=== PATIENT | male | born 1935 | race African-American/Black ===

== ENCOUNTER 2021-10-27 13:29 | Inpatient (IN) | payer OTHER, MEDICARE ==
[2021-10-27 14:03] VITALS: BMI 25.7
[2021-10-27] MEDS ORDERED: SODIUM CHLORIDE 2,585 ML IV ONE (14:14)
[2021-10-27] MEDS ORDERED: ACETAMINOPHEN 1000 MG/100 ML BAG IVPB ONE (15:28)
[2021-10-27] MEDS ORDERED: ACETAMINOPHEN INJECTION 100 ML IVPB ONE (15:29)
[2021-10-27] MEDS ORDERED: SODIUM CHLORIDE 0.9% 500 ML INFUS.BAG IV ONE (15:39)
[2021-10-27 15:41] LABS: VENOUS BASE EXCESS 2.1 mmol/L (-2-2); VENOUS O2 SATURATION 55.9 % (70-80); VENOUS PCO2 44.2 mmHg (38-52); VENOUS PH 7.407 (7.310-7.410)
[2021-10-27 15:51] LABS: BASO % 0.3 % (0-2.0); HEMATOCRIT 35.9 % (35.4-49); HEMOGLOBIN 11.7 GM/dL (11.7-16.9); LYMPH % 16.6 % (8-40); MCH 28.7 pg (25.7-33.7); MCHC 32.6 g/dl (32.0-35.9); MEAN CELL VOLUME 87.9 fl (80-96); MEAN PLT VOLUME 7.9 fl (7.5-11.1); MONO % 13.4 % (3.8-10.2); NEUT % 69.7 % (42.8-82.8); PLATELET COUNT 218 10^3/uL (134-434); RBC 4.08 M/mm3 (4.00-5.60); RDW 14.5 % (11.9-15.9); WHITE BLOOD COUNT 7.3 K/mm3 (4.0-10.0)
[2021-10-27 15:56] LABS: INR 1.15 (0.83-1.09); PROTHROMBIN TIME (PATIENT) 13.2 SEC (9.7-13.0)
[2021-10-27 15:59] LABS: ACTIVATED PTT 28.8 SECONDS (25.2-36.5)
[2021-10-27 16:16] LABS: ALBUMIN 3.3 g/dl (3.4-5.0); BLOOD UREA NITROGEN 14.9 mg/dL (7-18); CALCIUM 8.7 mg/dL (8.5-10.1); MAGNESIUM 2.2 mg/dL (1.8-2.4)
[2021-10-27 16:19] LABS: CREATININE 1.2 mg/dL (0.55-1.3)
[2021-10-27 16:21] LABS: BILIRUBIN,TOTAL 0.6 mg/dL (0.2-1); TOT PROT 7.4 g/dl (6.4-8.2)
[2021-10-27] MEDS ORDERED: LIDOCAINE HCL 2% JELLY 10 ML CARTRIDGE UR ONE (19:12)
[2021-10-27] MEDS ORDERED: LIDOCAINE HCL 2% JELLY 10 ML CARTRIDGE ONE (19:15)
[2021-10-27] MEDS ORDERED: CEFTRIAXONE 1 GM/50 ML BAG ONE (20:18)
[2021-10-27 20:49] LABS: EPI CELLS 5 /uL (0-25.1); HYALINE CASTS 10 /uL (0-3.1); URINE APPEARANCE CLOUDY; URINE BACTERIA 22 /uL (0-1359); URINE BILIRUBIN NEGATIVE (NEGATIVE); URINE COLOR ORANGE; URINE GLUCOSE (UA) NEGATIVE (NEGATIVE); URINE KETONE NEGATIVE (NEGATIVE); URINE LEUK ESTERASE 2+ (NEGATIVE); URINE NITRITE NEGATIVE (NEGATIVE); URINE PROTEIN 2+ (NEGATIVE); URINE UROBILINOGEN 0.2 mg/dL (0.2-1.0); URINE WBC 786 /uL (0-25.8)
[2021-10-27] MEDS ORDERED: ACETAMINOPHEN 325 MG TABLET (FP) PO ONE (22:30)
[2021-10-27] MEDS ORDERED: ACETAMINOPHEN 325 MG TABLET (FP) ONE (22:31)
[2021-10-27 23:56] LABS: URINE RBC 8300 /uL (0-23.9)
[2021-10-28] MEDS ORDERED: IBUPROFEN 800 MG/8 ML IJ IVPB ONE (03:19)
[2021-10-28] MEDS: MELATONIN 5 MG TABLETS PO PRN (03:48)
[2021-10-28] MEDS ORDERED: HALOPERIDOL LACTATE 5 MG/ML IM ONE (04:00)
[2021-10-28] MEDS ORDERED: traZODone HCL 50 MG TABLET (FP) PO ONE (04:06)
[2021-10-28] MEDS ORDERED: TAMSULOSIN HCL 0.4 MG CAP ONE (09:10)
[2021-10-28] MEDS: TAMSULOSIN HCL 0.4 MG CAP PO SCH (09:13)
[2021-10-28 09:38] LABS: BASO % 0.6 % (0-2.0); EOS % 4.8 % (0-4.5); HEMATOCRIT 31.9 % (35.4-49); HEMOGLOBIN 10.6 GM/dL (11.7-16.9); LYMPH % 20.2 % (8-40); MCH 28.9 pg (25.7-33.7); MCHC 33.3 g/dl (32.0-35.9); MEAN CELL VOLUME 86.8 fl (80-96); MEAN PLT VOLUME 8.4 fl (7.5-11.1); MONO % 12.4 % (3.8-10.2); PLATELET COUNT 180 10^3/uL (134-434); RBC 3.67 M/mm3 (4.00-5.60); RDW 14.2 % (11.9-15.9); WHITE BLOOD COUNT 5.3 K/mm3 (4.0-10.0)
[2021-10-28 10:06] LABS: ALBUMIN 2.8 g/dl (3.4-5.0)
[2021-10-28 10:07] LABS: BLOOD UREA NITROGEN 16.1 mg/dL (7-18); CALCIUM 8.3 mg/dL (8.5-10.1); MAGNESIUM 2.4 mg/dL (1.8-2.4)
[2021-10-28 10:09] LABS: CREATININE 0.8 mg/dL (0.55-1.3); PHOSPHOROUS 2.8 mg/dL (2.5-4.9)
[2021-10-28 10:11] LABS: BILIRUBIN,TOTAL 0.5 mg/dL (0.2-1); TOT PROT 6.5 g/dl (6.4-8.2)
[2021-10-28] MEDS ORDERED: cefTRIAXone SODIUM 1 GM VIAL ONE (12:02)
[2021-10-28] MEDS ORDERED: DEXTROSE 5%-WATER - 50 ML IVPB ONE (12:02)
[2021-10-28] MEDS: ENOXAPARIN NA (PORCINE) 40 MG/0.4 ML DISP.SYRIN SQ SCH (12:37)
[2021-10-28] MEDS: metoPROLOL SUCCINATE 25 MG TAB.SR.24H (FP) PO SCH (12:38)
[2021-10-28] MEDS: SOLIFENACIN SUCCINATE 5 MG TAB PO SCH (12:38)
[2021-10-28] MEDS: FAMOTIDINE 20 MG TABLET PO SCH (12:38)
[2021-10-28] MEDS: oxyCODONE HCL 5 MG TABLET PO SCH ×2 (12:38→21:51)
[2021-10-28] MEDS: FINASTERIDE 5 MG TABLET (FP) PO SCH (12:39)
[2021-10-28] MEDS: GABAPENTIN 300 MG CAPSULE PO SCH ×2 (12:40→21:53)
[2021-10-28] MEDS: ACETAMINOPHEN 325 MG TABLET (FP) PO SCH ×2 (12:40→21:53)
[2021-10-28] MEDS: CEFTRIAXONE 1 GM in DEXTROSE 5%-WATER - 50 ML IVPB SCH (12:41)
[2021-10-28] MEDS: ENALAPRIL MALEATE 5 MG TABLET PO SCH (13:15)
[2021-10-28] MEDS: ATORVASTATIN CA 20 MG TABLET (FP) PO SCH (21:54)
[2021-10-29] MEDS ORDERED: cefTRIAXone SODIUM 1 GM VIAL ONE (09:03)
[2021-10-29] MEDS: CEFTRIAXONE 1 GM in DEXTROSE 5%-WATER - 50 ML IVPB SCH (09:23)
[2021-10-29] MEDS: ENOXAPARIN NA (PORCINE) 40 MG/0.4 ML DISP.SYRIN SQ SCH (09:24)
[2021-10-29] MEDS: metoPROLOL SUCCINATE 25 MG TAB.SR.24H (FP) PO SCH (09:24)
[2021-10-29] MEDS: FINASTERIDE 5 MG TABLET (FP) PO SCH (09:24)
[2021-10-29] MEDS: FAMOTIDINE 20 MG TABLET PO SCH (09:24)
[2021-10-29] MEDS: TAMSULOSIN HCL 0.4 MG CAP PO SCH (09:24)
[2021-10-29] MEDS: GABAPENTIN 300 MG CAPSULE PO SCH ×2 (09:24→21:31)
[2021-10-29] MEDS: SOLIFENACIN SUCCINATE 5 MG TAB PO SCH (09:24)
[2021-10-29] MEDS: ACETAMINOPHEN 325 MG TABLET (FP) PO SCH ×2 (09:25→21:30)
[2021-10-29] MEDS: oxyCODONE HCL 5 MG TABLET PO SCH ×2 (09:26→21:29)
[2021-10-29 12:41] LABS: BASO % 0.6 % (0-2.0); EOS % 4.5 % (0-4.5); HEMATOCRIT 30.7 % (35.4-49); HEMOGLOBIN 10.1 GM/dL (11.7-16.9); LYMPH % 24.7 % (8-40); MCH 28.7 pg (25.7-33.7); MCHC 32.8 g/dl (32.0-35.9); MEAN CELL VOLUME 87.4 fl (80-96); MEAN PLT VOLUME 8.5 fl (7.5-11.1); MONO % 9.7 % (3.8-10.2); NEUT % 60.5 % (42.8-82.8); PLATELET COUNT 223 10^3/uL (134-434); RBC 3.52 M/mm3 (4.00-5.60); RDW 14.4 % (11.9-15.9); WHITE BLOOD COUNT 5.4 K/mm3 (4.0-10.0)
[2021-10-29 13:06] LABS: ALBUMIN 2.7 g/dl (3.4-5.0); BLOOD UREA NITROGEN 15.7 mg/dL (7-18); CALCIUM 8.7 mg/dL (8.5-10.1)
[2021-10-29 13:07] LABS: MAGNESIUM 2.3 mg/dL (1.8-2.4)
[2021-10-29 13:09] LABS: CREATININE 0.9 mg/dL (0.55-1.3)
[2021-10-29 13:11] LABS: BILIRUBIN,TOTAL 0.2 mg/dL (0.2-1); TOT PROT 6.4 g/dl (6.4-8.2)
[2021-10-29] MEDS: ENALAPRIL MALEATE 5 MG TABLET PO SCH (15:40)
[2021-10-29] MEDS: MELATONIN 5 MG TABLETS PO PRN (21:29)
[2021-10-29] MEDS: ATORVASTATIN CA 20 MG TABLET (FP) PO SCH (21:30)
[2021-10-30 08:37] LABS: BASO % 0.6 % (0-2.0); EOS % 6.2 % (0-4.5); HEMOGLOBIN 10.1 GM/dL (11.7-16.9); LYMPH % 29.9 % (8-40); MCH 29.2 pg (25.7-33.7); MCHC 33.8 g/dl (32.0-35.9); MEAN CELL VOLUME 86.6 fl (80-96); MONO % 10.8 % (3.8-10.2); NEUT % 52.5 % (42.8-82.8); PLATELET COUNT 238 10^3/uL (134-434); RBC 3.47 M/mm3 (4.00-5.60); WHITE BLOOD COUNT 4.7 K/mm3 (4.0-10.0)
[2021-10-30 09:15] LABS: ALBUMIN 2.6 g/dl (3.4-5.0); CALCIUM 8.6 mg/dL (8.5-10.1); CREATININE 0.9 mg/dL (0.55-1.3); MAGNESIUM 2.1 mg/dL (1.8-2.4)
[2021-10-30 09:16] LABS: BLOOD UREA NITROGEN 13.5 mg/dL (7-18)
[2021-10-30 09:20] LABS: BILIRUBIN,TOTAL 0.5 mg/dL (0.2-1)
[2021-10-30 09:21] LABS: TOT PROT 6.2 g/dl (6.4-8.2)
[2021-10-30] MEDS: oxyCODONE HCL 5 MG TABLET PO SCH ×2 (09:23→21:57)
[2021-10-30] MEDS: GABAPENTIN 300 MG CAPSULE PO SCH ×2 (09:23→21:56)
[2021-10-30] MEDS: SOLIFENACIN SUCCINATE 5 MG TAB PO SCH (09:23)
[2021-10-30] MEDS: TAMSULOSIN HCL 0.4 MG CAP PO SCH (09:23)
[2021-10-30] MEDS: metoPROLOL SUCCINATE 25 MG TAB.SR.24H (FP) PO SCH (09:23)
[2021-10-30] MEDS: FINASTERIDE 5 MG TABLET (FP) PO SCH (09:23)
[2021-10-30] MEDS: FAMOTIDINE 20 MG TABLET PO SCH (09:24)
[2021-10-30] MEDS: ENOXAPARIN NA (PORCINE) 40 MG/0.4 ML DISP.SYRIN SQ SCH (09:25)
[2021-10-30] MEDS: ACETAMINOPHEN 325 MG TABLET (FP) PO SCH ×2 (09:26→21:58)
[2021-10-30] MEDS: ENALAPRIL MALEATE 5 MG TABLET PO SCH (09:33)
[2021-10-30] MEDS: CEFTRIAXONE 1 GM in DEXTROSE 5%-WATER - 50 ML IVPB SCH (13:52)
[2021-10-30] MEDS ORDERED: guaiFENesin 200 MG/10 ML 10 ML UNIT-DOSE CUPS PO PRN (15:39)
[2021-10-30] MEDS: CEFUROXIME AXETIL 500 MG TABLET PO SCH ×2 (16:56→21:57)
[2021-10-30] MEDS: POLYETHYLENE GLYCOL (HEALTHYLAX) 3350 17 GM PACKET PO SCH (16:57)
[2021-10-30] MEDS: DOCUSATE SODIUM 100 MG CAPSULE (FP) PO SCH ×2 (16:58→21:57)
[2021-10-30] MEDS: ATORVASTATIN CA 20 MG TABLET (FP) PO SCH (21:57)
[2021-10-31] MEDS: DOCUSATE SODIUM 100 MG CAPSULE (FP) PO SCH ×3 (05:24→21:42)
[2021-10-31] MEDS: TAMSULOSIN HCL 0.4 MG CAP PO SCH (08:54)
[2021-10-31] MEDS: ENOXAPARIN NA (PORCINE) 40 MG/0.4 ML DISP.SYRIN SQ SCH (10:36)
[2021-10-31] MEDS: POLYETHYLENE GLYCOL (HEALTHYLAX) 3350 17 GM PACKET PO SCH (10:36)
[2021-10-31] MEDS: CEFUROXIME AXETIL 500 MG TABLET PO SCH ×2 (10:36→21:45)
[2021-10-31] MEDS: ACETAMINOPHEN 325 MG TABLET (FP) PO SCH ×2 (10:36→21:42)
[2021-10-31] MEDS: oxyCODONE HCL 5 MG TABLET PO SCH ×2 (10:37→21:43)
[2021-10-31] MEDS: FAMOTIDINE 20 MG TABLET PO SCH (10:37)
[2021-10-31] MEDS: GABAPENTIN 300 MG CAPSULE PO SCH ×2 (10:37→21:41)
[2021-10-31] MEDS: FINASTERIDE 5 MG TABLET (FP) PO SCH (10:38)
[2021-10-31] MEDS: ENALAPRIL MALEATE 5 MG TABLET PO SCH (10:38)
[2021-10-31] MEDS: SOLIFENACIN SUCCINATE 5 MG TAB PO SCH (10:38)
[2021-10-31] MEDS: metoPROLOL SUCCINATE 25 MG TAB.SR.24H (FP) PO SCH (10:39)
[2021-10-31 11:02] LABS: BASO % 0.8 % (0-2.0); EOS % 5.3 % (0-4.5); HEMATOCRIT 30.8 % (35.4-49); HEMOGLOBIN 10.3 GM/dL (11.7-16.9); LYMPH % 29.9 % (8-40); MCH 28.7 pg (25.7-33.7); MCHC 33.3 g/dl (32.0-35.9); MEAN CELL VOLUME 86.1 fl (80-96); MEAN PLT VOLUME 8.4 fl (7.5-11.1); MONO % 9.1 % (3.8-10.2); NEUT % 54.9 % (42.8-82.8); PLATELET COUNT 254 10^3/uL (134-434); RBC 3.58 M/mm3 (4.00-5.60); RDW 14.2 % (11.9-15.9); WHITE BLOOD COUNT 5.2 K/mm3 (4.0-10.0)
[2021-10-31 12:00] LABS: ALBUMIN 2.9 g/dl (3.4-5.0); CALCIUM 8.6 mg/dL (8.5-10.1); MAGNESIUM 2.2 mg/dL (1.8-2.4)
[2021-10-31 12:03] LABS: CREATININE 0.9 mg/dL (0.55-1.3)
[2021-10-31 12:04] LABS: BILIRUBIN,TOTAL 0.4 mg/dL (0.2-1); TOT PROT 6.6 g/dl (6.4-8.2)
[2021-10-31] MEDS: ATORVASTATIN CA 20 MG TABLET (FP) PO SCH (21:45)
[2021-10-31 23:38] VITALS: BP 128/68; PULSE 75; TEMP 99
== END 2021-10-31 22:15 | DRG 689 ==
LOC: JER 13:29 → JERBED 22:05 → J8W 10-28 10:36
PROVIDERS: ADMIT Hospitalist; ATTEND Nurse Practitioner Family
DX: N39.0 Urinary tract infection, site not specified (principal); G93.41 Metabolic encephalopathy; I69.354 Hemiplegia and hemiparesis following cerebral infarction affecting left non-dominant side; I10 Essential (primary) hypertension; F03.90 Unspecified dementia, unspecified severity, without behavioral disturbance, psychotic disturbance, mood disturbance, and anxiety; R41.82 Altered mental status, unspecified; E78.00 Pure hypercholesterolemia, unspecified; N40.0 Benign prostatic hyperplasia without lower urinary tract symptoms; W18.39XA Other fall on same level, initial encounter; Y93.89 Activity, other specified; Y92.89 Other specified places as the place of occurrence of the external cause
CPT/HCPCS: 36415; 70450-TC; 71045-TC-FY; 72125-TC; 80053; 81003; 82550; 82553; 82803; 83605; 83735; 84100; 84484; 85025; 85610; 85730; 86850; 86900; 86901; 87040; 87086; 93005; 93010; 97116-GP; 97162-GP; 99285-25; C9803-CS; U0003; U0005

== ENCOUNTER 2021-12-30 13:14 | Emergency (ER) | payer OTHER, MEDICARE ==
[2021-12-30 13:24] VITALS: BMI 25.7
[2021-12-30 14:11] VITALS: TEMP 97.6
[2021-12-30 18:35] VITALS: BP 129/74; PULSE 81; RESP 14
== END 2021-12-31 02:17 | disposition home or self-care (01) ==
LOC: JER 13:14
DX: R51.9 Headache, unspecified (principal); C70.9 Malignant neoplasm of meninges, unspecified; W19.XXXA Unspecified fall, initial encounter
CPT/HCPCS: 70450-TC; 71045-TC-FY; 72125-TC; 99284-25

== ENCOUNTER 2023-04-19 13:51 | Inpatient (IN) | payer OTHER ==
[2023-04-19] MEDS ORDERED: SODIUM CHLORIDE 1,000 ML IV STA (15:48)
[2023-04-19] MEDS ORDERED: ONDANSETRON 4 MG/2 ML VIAL IVPUSH ONE (15:48)
[2023-04-19] MEDS ORDERED: ACETAMINOPHEN 1000 MG/100 ML BAG IVPB ONE (15:49)
[2023-04-19] MEDS ORDERED: ONDANSETRON 4 MG/2 ML VIAL ONE (16:06)
[2023-04-19] MEDS ORDERED: CEFTRIAXONE 1,000 MG in DEXTROSE 5%-WATER - 50 ML IVPB STA (18:19)
[2023-04-19] MEDS ORDERED: AZITHROMYCIN IVPB 500 MG in DEXTROSE 5%-WATER - 250 ML IVPB ONE (18:20)
[2023-04-19 18:53] LABS: BASO % 0.6 % (0-2.0); EOS % 0.1 % (0-4.5); HEMATOCRIT 42.9 % (35.4-49); HEMOGLOBIN 13.7 GM/dL (11.7-16.9); LYMPH % 24.8 % (8-40); MCHC 32.1 g/dl (32.0-35.9); MEAN CELL VOLUME 90.4 fl (80-96); MEAN PLT VOLUME 7.7 fl (7.5-11.1); NEUT % 60.5 % (42.8-82.8); PLATELET COUNT 199 10^3/uL (134-434); RBC 4.74 M/mm3 (4.00-5.60); RDW 14.9 % (11.9-15.9); WHITE BLOOD COUNT 6.2 K/mm3 (4.0-10.0)
[2023-04-19 19:00] LABS: INR 1.13 (0.83-1.09)
[2023-04-19 19:07] LABS: PROTHROMBIN TIME (PATIENT) 13.1 SEC (9.7-13.0)
[2023-04-19 19:08] LABS: ACTIVATED PTT 27.4 SECONDS (25.2-36.5)
[2023-04-19 19:22] LABS: CHLORIDE 102 mmol/L (98-107); SODIUM 130 mmol/L (136-145)
[2023-04-19 19:25] LABS: ALBUMIN 3.2 g/dl (3.4-5.0); BLOOD UREA NITROGEN 15.1 mg/dL (7-18); CALCIUM 8.8 mg/dL (8.5-10.1); CO2 23 mmol/L (21-32); GLUCOSE,RANDOM 100 mg/dL (74-106); LIPASE < 10 U/L (73-393)
[2023-04-19 19:28] LABS: CREATININE 1.4 mg/dL (0.55-1.3)
[2023-04-19 19:30] LABS: BILIRUBIN,TOTAL 0.5 mg/dL (0.2-1); TOT PROT 8.6 g/dl (6.4-8.2)
[2023-04-19 19:31] LABS: ALK PHOS 51 U/L (45-117)
[2023-04-19 19:35] LABS: ANION GAP 4 mmol/L (4-13); POTASSIUM > 10.0 mmol/L (3.5-5.1); SGOT/AST 125 U/L (15-37); SGPT/ALT 34 U/L (13-61)
[2023-04-19] MEDS ORDERED: ACETAMINOPHEN INJECTION 100 ML IVPB ONE (21:51)
[2023-04-19] MEDS ORDERED: CEFTRIAXONE 1 GM/50 ML BAG ONE (21:52)
[2023-04-19] MEDS ORDERED: AZITHROMYCIN IVPB 500 MG/250 ML BAG IVPB ONE (21:52)
[2023-04-19 22:17] LABS: POTASSIUM 4.3 mmol/L (3.5-5.1)
[2023-04-19 22:18] LABS: CALCIUM 8.9 mg/dL (8.5-10.1)
[2023-04-19 22:19] LABS: BLOOD UREA NITROGEN 15.3 mg/dL (7-18)
[2023-04-19 22:22] LABS: CREATININE 1.4 mg/dL (0.55-1.3)
[2023-04-19] MEDS ORDERED: DOCUSATE SODIUM 100 MG CAPSULE (FP) PO PRN (23:42)
[2023-04-20] MEDS: SODIUM CHLORIDE 1,000 ML IV SCH ×2 (01:00→21:10)
[2023-04-20] MEDS ORDERED: ACETAMINOPHEN 1000 MG/100 ML BAG IVPB PRN (02:00)
[2023-04-20] MEDS ORDERED: ONDANSETRON 4 MG/2 ML VIAL IVPUSH PRN (02:00)
[2023-04-20] MEDS ORDERED: REMDESIVIR 200 MG in SODIUM CHLORIDE 250 ML IVPB ONE ×2 (10:30→20:00)
[2023-04-20] MEDS ORDERED: REMDESIVIR 100 MG in SODIUM CHLORIDE 250 ML IVPB SCH (20:00)
[2023-04-20] MEDS: ATORVASTATIN CA 20 MG TABLET (FP) PO SCH (22:23)
[2023-04-21 01:05] VITALS: BMI 29.4
[2023-04-21] MEDS: SODIUM CHLORIDE 1,000 ML IV SCH (01:45)
[2023-04-21] MEDS: PARoxetine HCL 10 MG TABLET PO SCH (09:25)
[2023-04-21] MEDS: metoPROLOL SUCCINATE 25 MG TAB.SR.24H (FP) PO SCH (09:25)
[2023-04-21] MEDS: ACETAMINOPHEN 325 MG TABLET (FP) PO PRN (09:25)
[2023-04-21] MEDS ORDERED: REMDESIVIR 100 MG in SODIUM CHLORIDE 250 ML IVPB SCH (10:00)
[2023-04-21] MEDS ORDERED: traMADol HCL 50 MG TABLET PO PRN (12:26)
[2023-04-21] MEDS: DOCUSATE SODIUM 100 MG CAPSULE (FP) PO SCH ×2 (13:49→22:09)
[2023-04-21] MEDS: REMDESIVIR 100 MG in SODIUM CHLORIDE 250 ML IVPB SCH (20:42)
[2023-04-21] MEDS: ATORVASTATIN CA 20 MG TABLET (FP) PO SCH (22:09)
[2023-04-21] MEDS: GABAPENTIN 300 MG CAPSULE PO SCH (22:10)
[2023-04-22] MEDS: ACETAMINOPHEN 325 MG TABLET (FP) PO PRN (02:25)
[2023-04-22] MEDS: MELATONIN 5 MG TABLETS PO PRN (02:26)
[2023-04-22] MEDS: DOCUSATE SODIUM 100 MG CAPSULE (FP) PO SCH ×3 (06:52→22:03)
[2023-04-22] MEDS: ENALAPRIL MALEATE 5 MG TABLET PO SCH (10:59)
[2023-04-22] MEDS: PARoxetine HCL 10 MG TABLET PO SCH (10:59)
[2023-04-22] MEDS: GABAPENTIN 300 MG CAPSULE PO SCH ×2 (10:59→22:04)
[2023-04-22] MEDS: metoPROLOL SUCCINATE 25 MG TAB.SR.24H (FP) PO SCH (10:59)
[2023-04-22] MEDS: TAMSULOSIN HCL 0.4 MG CAP PO SCH (10:59)
[2023-04-22] MEDS: FINASTERIDE 5 MG TABLET (FP) PO SCH (11:34)
[2023-04-22] MEDS: POLYETHYLENE GLYCOL (HEALTHYLAX) 3350 17 GM PACKET PO SCH (11:34)
[2023-04-22] MEDS: FAMOTIDINE 20 MG TABLET PO SCH (11:34)
[2023-04-22] MEDS: SOLIFENACIN SUCCINATE 5 MG TAB PO SCH (11:34)
[2023-04-22] MEDS: ATORVASTATIN CA 20 MG TABLET (FP) PO SCH (22:03)
[2023-04-22] MEDS: REMDESIVIR 100 MG in SODIUM CHLORIDE 250 ML IVPB SCH (22:12)
[2023-04-23] MEDS: DOCUSATE SODIUM 100 MG CAPSULE (FP) PO SCH ×3 (05:31→21:46)
[2023-04-23] MEDS: metoPROLOL SUCCINATE 25 MG TAB.SR.24H (FP) PO SCH ×2 (09:51→12:24)
[2023-04-23] MEDS: POLYETHYLENE GLYCOL (HEALTHYLAX) 3350 17 GM PACKET PO SCH (09:51)
[2023-04-23] MEDS: ENALAPRIL MALEATE 5 MG TABLET PO SCH ×2 (09:51→12:24)
[2023-04-23] MEDS: FINASTERIDE 5 MG TABLET (FP) PO SCH ×2 (09:51→12:24)
[2023-04-23] MEDS: TAMSULOSIN HCL 0.4 MG CAP PO SCH ×2 (09:51→12:23)
[2023-04-23] MEDS: FAMOTIDINE 20 MG TABLET PO SCH ×2 (09:51→12:24)
[2023-04-23] MEDS: PARoxetine HCL 10 MG TABLET PO SCH ×2 (09:51→12:24)
[2023-04-23] MEDS: GABAPENTIN 300 MG CAPSULE PO SCH ×3 (09:51→21:46)
[2023-04-23] MEDS: SOLIFENACIN SUCCINATE 5 MG TAB PO SCH ×2 (09:51→12:23)
[2023-04-23] MEDS: ACETAMINOPHEN 325 MG TABLET (FP) PO PRN (10:10)
[2023-04-23 12:01] LABS: ARTERIAL BLD GAS O2 SATURATION 98.2 % (95-98); ARTERIAL BLOOD GAS BASE EXCESS -1.6 mmol/L (-2-2); ARTERIAL BLOOD GAS PO2 110.8 mmHg (80-100); ARTERIAL BLOOD GAS pH 7.441 (7.350-7.450)
[2023-04-23 12:07] LABS: ALLENS TEST POSITIVE
[2023-04-23] MEDS: ACETAMINOPHEN 1000 MG/100 ML BAG IVPB PRN ×2 (12:30→21:46)
[2023-04-23 12:57] LABS: BASO % 0.3 % (0-2.0); EOS % 0.1 % (0-4.5); HEMATOCRIT 39.5 % (35.4-49); HEMOGLOBIN 12.9 GM/dL (11.7-16.9); LYMPH % 19.4 % (8-40); MCH 28.8 pg (25.7-33.7); MCHC 32.7 g/dl (32.0-35.9); MEAN CELL VOLUME 88.2 fl (80-96); MEAN PLT VOLUME 8.2 fl (7.5-11.1); MONO % 10.1 % (3.8-10.2); NEUT % 70.1 % (42.8-82.8); PLATELET COUNT 182 10^3/uL (134-434); RBC 4.48 M/mm3 (4.00-5.60); RDW 14.8 % (11.9-15.9); WHITE BLOOD COUNT 7.9 K/mm3 (4.0-10.0)
[2023-04-23 13:14] LABS: POTASSIUM 3.9 mmol/L (3.5-5.1)
[2023-04-23 13:16] LABS: CALCIUM 8.5 mg/dL (8.5-10.1)
[2023-04-23 13:17] LABS: BLOOD UREA NITROGEN 15.8 mg/dL (7-18)
[2023-04-23 13:20] LABS: CREATININE 1.1 mg/dL (0.55-1.3)
[2023-04-23 13:21] LABS: BILIRUBIN,TOTAL 0.9 mg/dL (0.2-1); TOT PROT 6.9 g/dl (6.4-8.2)
[2023-04-23] MEDS: REMDESIVIR 100 MG in SODIUM CHLORIDE 250 ML IVPB SCH (21:18)
[2023-04-23] MEDS: ATORVASTATIN CA 20 MG TABLET (FP) PO SCH (21:46)
[2023-04-24] MEDS: DOCUSATE SODIUM 100 MG CAPSULE (FP) PO SCH ×3 (05:49→22:41)
[2023-04-24] MEDS: POLYETHYLENE GLYCOL (HEALTHYLAX) 3350 17 GM PACKET PO SCH (10:54)
[2023-04-24] MEDS: TAMSULOSIN HCL 0.4 MG CAP PO SCH (10:54)
[2023-04-24] MEDS: GABAPENTIN 300 MG CAPSULE PO SCH ×2 (10:54→22:41)
[2023-04-24] MEDS: metoPROLOL SUCCINATE 25 MG TAB.SR.24H (FP) PO SCH (10:55)
[2023-04-24] MEDS: SOLIFENACIN SUCCINATE 5 MG TAB PO SCH (10:55)
[2023-04-24] MEDS: FINASTERIDE 5 MG TABLET (FP) PO SCH (10:55)
[2023-04-24] MEDS: FAMOTIDINE 20 MG TABLET PO SCH (10:55)
[2023-04-24] MEDS: PARoxetine HCL 10 MG TABLET PO SCH (10:55)
[2023-04-24] MEDS: ENALAPRIL MALEATE 5 MG TABLET PO SCH (10:57)
[2023-04-24] MEDS ORDERED: ACETAMINOPHEN 1000 MG/100 ML BAG IVPB ONE (18:28)
[2023-04-24] MEDS: ATORVASTATIN CA 20 MG TABLET (FP) PO SCH (22:41)
[2023-04-24] MEDS: REMDESIVIR 100 MG in SODIUM CHLORIDE 250 ML IVPB SCH (23:04)
[2023-04-25] MEDS: DOCUSATE SODIUM 100 MG CAPSULE (FP) PO SCH ×3 (06:06→22:05)
[2023-04-25] MEDS: TAMSULOSIN HCL 0.4 MG CAP PO SCH (11:00)
[2023-04-25] MEDS: POLYETHYLENE GLYCOL (HEALTHYLAX) 3350 17 GM PACKET PO SCH ×3 (11:00→22:05)
[2023-04-25] MEDS: FAMOTIDINE 20 MG TABLET PO SCH (11:00)
[2023-04-25] MEDS: PARoxetine HCL 10 MG TABLET PO SCH (11:00)
[2023-04-25] MEDS: metoPROLOL SUCCINATE 25 MG TAB.SR.24H (FP) PO SCH (11:00)
[2023-04-25] MEDS: GABAPENTIN 300 MG CAPSULE PO SCH ×2 (11:00→22:04)
[2023-04-25] MEDS: FINASTERIDE 5 MG TABLET (FP) PO SCH (11:00)
[2023-04-25] MEDS: ENALAPRIL MALEATE 5 MG TABLET PO SCH (11:15)
[2023-04-25] MEDS: SOLIFENACIN SUCCINATE 5 MG TAB PO SCH (11:15)
[2023-04-25] MEDS ORDERED: BISACODYL 10 MG SUPP.RECT PR ONE (18:19)
[2023-04-25] MEDS: ATORVASTATIN CA 20 MG TABLET (FP) PO SCH (22:05)
[2023-04-26] MEDS: DOCUSATE SODIUM 100 MG CAPSULE (FP) PO SCH ×3 (06:36→22:33)
[2023-04-26] MEDS: POLYETHYLENE GLYCOL (HEALTHYLAX) 3350 17 GM PACKET PO SCH ×2 (09:54→22:33)
[2023-04-26] MEDS: GABAPENTIN 300 MG CAPSULE PO SCH ×2 (09:54→22:33)
[2023-04-26] MEDS: TAMSULOSIN HCL 0.4 MG CAP PO SCH (09:54)
[2023-04-26] MEDS: FINASTERIDE 5 MG TABLET (FP) PO SCH (09:55)
[2023-04-26] MEDS: FAMOTIDINE 20 MG TABLET PO SCH (09:55)
[2023-04-26] MEDS: ACETAMINOPHEN 325 MG TABLET (FP) PO PRN ×2 (09:55→23:04)
[2023-04-26] MEDS: PARoxetine HCL 10 MG TABLET PO SCH (09:55)
[2023-04-26] MEDS: metoPROLOL SUCCINATE 25 MG TAB.SR.24H (FP) PO SCH (09:55)
[2023-04-26] MEDS: ENALAPRIL MALEATE 5 MG TABLET PO SCH (09:55)
[2023-04-26] MEDS: SOLIFENACIN SUCCINATE 5 MG TAB PO SCH (09:55)
[2023-04-26] MEDS: ATORVASTATIN CA 20 MG TABLET (FP) PO SCH (22:33)
[2023-04-27] MEDS: DOCUSATE SODIUM 100 MG CAPSULE (FP) PO SCH ×3 (06:56→22:40)
[2023-04-27] MEDS: ACETAMINOPHEN 325 MG TABLET (FP) PO PRN ×3 (06:56→22:40)
[2023-04-27] MEDS: TAMSULOSIN HCL 0.4 MG CAP PO SCH (09:16)
[2023-04-27] MEDS: GABAPENTIN 300 MG CAPSULE PO SCH ×2 (12:22→22:40)
[2023-04-27] MEDS: PARoxetine HCL 10 MG TABLET PO SCH (12:22)
[2023-04-27] MEDS: FAMOTIDINE 20 MG TABLET PO SCH (12:22)
[2023-04-27] MEDS: FINASTERIDE 5 MG TABLET (FP) PO SCH (12:23)
[2023-04-27] MEDS: metoPROLOL SUCCINATE 25 MG TAB.SR.24H (FP) PO SCH (12:23)
[2023-04-27] MEDS: SOLIFENACIN SUCCINATE 5 MG TAB PO SCH (12:23)
[2023-04-27] MEDS: POLYETHYLENE GLYCOL (HEALTHYLAX) 3350 17 GM PACKET PO SCH ×3 (12:25→22:40)
[2023-04-27] MEDS: ENALAPRIL MALEATE 5 MG TABLET PO SCH (14:52)
[2023-04-27] MEDS: ATORVASTATIN CA 20 MG TABLET (FP) PO SCH (22:40)
[2023-04-27] MEDS: MELATONIN 5 MG TABLETS PO PRN (22:43)
[2023-04-28] MEDS: ACETAMINOPHEN 325 MG TABLET (FP) PO PRN ×2 (06:59→16:03)
[2023-04-28] MEDS: DOCUSATE SODIUM 100 MG CAPSULE (FP) PO SCH ×3 (06:59→22:02)
[2023-04-28] MEDS: POLYETHYLENE GLYCOL (HEALTHYLAX) 3350 17 GM PACKET PO SCH ×2 (10:39→22:01)
[2023-04-28] MEDS: GABAPENTIN 300 MG CAPSULE PO SCH ×2 (10:40→22:02)
[2023-04-28] MEDS: TAMSULOSIN HCL 0.4 MG CAP PO SCH (10:40)
[2023-04-28] MEDS: metoPROLOL SUCCINATE 25 MG TAB.SR.24H (FP) PO SCH (10:40)
[2023-04-28] MEDS: FINASTERIDE 5 MG TABLET (FP) PO SCH (10:40)
[2023-04-28] MEDS: FAMOTIDINE 20 MG TABLET PO SCH (10:40)
[2023-04-28] MEDS: PARoxetine HCL 10 MG TABLET PO SCH (10:40)
[2023-04-28] MEDS: ENALAPRIL MALEATE 5 MG TABLET PO SCH (10:40)
[2023-04-28] MEDS: SOLIFENACIN SUCCINATE 5 MG TAB PO SCH (10:40)
[2023-04-28] MEDS ORDERED: traMADol HCL 50 MG TABLET PO PRN (11:07)
[2023-04-28] MEDS: ATORVASTATIN CA 20 MG TABLET (FP) PO SCH (22:02)
[2023-04-28] MEDS: MELATONIN 5 MG TABLETS PO PRN (22:02)
[2023-04-29 03:48] VITALS: RESP 18
[2023-04-29] MEDS: DOCUSATE SODIUM 100 MG CAPSULE (FP) PO SCH ×2 (05:17→15:32)
[2023-04-29] MEDS: PARoxetine HCL 10 MG TABLET PO SCH (09:08)
[2023-04-29] MEDS: TAMSULOSIN HCL 0.4 MG CAP PO SCH (09:08)
[2023-04-29] MEDS: FINASTERIDE 5 MG TABLET (FP) PO SCH (09:08)
[2023-04-29] MEDS: GABAPENTIN 300 MG CAPSULE PO SCH (09:08)
[2023-04-29] MEDS: metoPROLOL SUCCINATE 25 MG TAB.SR.24H (FP) PO SCH (09:08)
[2023-04-29] MEDS: ENALAPRIL MALEATE 5 MG TABLET PO SCH (09:08)
[2023-04-29] MEDS: FAMOTIDINE 20 MG TABLET PO SCH (09:08)
[2023-04-29] MEDS: POLYETHYLENE GLYCOL (HEALTHYLAX) 3350 17 GM PACKET PO SCH (09:08)
[2023-04-29] MEDS: SOLIFENACIN SUCCINATE 5 MG TAB PO SCH (09:08)
[2023-04-29 09:15] VITALS: PULSE 78; TEMP 98.6
[2023-04-29 15:39] VITALS: BP 120/74
== END 2023-04-29 17:45 | DRG 177 ==
LOC: JER 13:51 → JERBED 22:33 → J8W 04-20 18:44 → OBSVTOIN 04-24 09:51 → J7W 04-24 14:35
PROVIDERS: ADMIT Internal Medicine; ATTEND Internal Medicine
PROC: XW033E5 Introduction of Remdesivir Anti-infective into Peripheral Vein, Percutaneous Approach, New Technology Group 5 (ICD-10-PCS; principal; 2023-04-20)
DX: U07.1 COVID-19 (principal); G93.41 Metabolic encephalopathy; I69.354 Hemiplegia and hemiparesis following cerebral infarction affecting left non-dominant side; F05 Delirium due to known physiological condition; R04.2 Hemoptysis; F03.90 Unspecified dementia, unspecified severity, without behavioral disturbance, psychotic disturbance, mood disturbance, and anxiety; I10 Essential (primary) hypertension; K21.9 Gastro-esophageal reflux disease without esophagitis; N40.0 Benign prostatic hyperplasia without lower urinary tract symptoms; F32.A Depression, unspecified; M54.9 Dorsalgia, unspecified; R10.9 Unspecified abdominal pain; K59.00 Constipation, unspecified
CPT/HCPCS: 0241U-QW; 36415; 36600; 70450-TC; 71045-TC-FY; 74177-TC; 80048; 80053; 82803; 82962; 83690; 84484; 85025; 85610; 85730; 87040; 87086; 93005; 93010; 99285-25; G0378; J0248; Q9967